=== PATIENT | female | born 1995 | race Caucasian/White ===

== ENCOUNTER 2019-03-29 17:27 | Emergency (ER) | payer OTHER ==
[~2019-03-29] VITALS: Ht 154.9 cm; Wt 55.6 kg
[~2019-03-29 17:27] MED LIST: CEPH-443 PO; METO10TA92 PO; ONDA4TAB14 PO
[2019-03-29 17:32] VITALS: BP 99/57; PULSE 83; RESP 16; Ht 154.9 cm; Wt 55.6 kg
[2019-03-29] MEDS ORDERED: METOCLOPRAMIDE 10 MG TAB PO ONE (19:30)
== END 2019-03-29 19:50 | disposition home or self-care (01) ==
LOC: FTE 17:27
DX: O21.9 Vomiting of pregnancy, unspecified (principal); Z3A.01 Less than 8 weeks gestation of pregnancy
CPT/HCPCS: 76801; 80053; 81001; 84702; 85025; 86900; 86901; Z7610